=== PATIENT | female | born 1950 ===

== ENCOUNTER 2020-11-24 05:13 | Day surgery (SDC) | payer OTHER | END 2020-11-24 13:55 | disposition home or self-care (01) | LOC: CIR.AMB 05:13 | PROVIDERS: ATTEND Orthopaedic Surgery Hand Surgery | DX: D16.11 Benign neoplasm of short bones of right upper limb (principal); Z20.822 Contact with and (suspected) exposure to COVID-19 ==

== ENCOUNTER 2020-11-26 11:35 | Emergency (ER) | payer OTHER ==
[~2020-11-26] VITALS: Ht 154.9 cm; Wt 52.2 kg
== END 2020-11-26 14:25 | disposition home or self-care (01) ==
LOC: ER 11:35
DX: T88.8XXA Other specified complications of surgical and medical care, not elsewhere classified, initial encounter (principal); R60.0 Localized edema